=== PATIENT | female | born 2000 | race American Indian/Alaskan Native ===

== ENCOUNTER 2018-07-12 00:55 | Emergency (ER) | payer OTHER ==
[2018-07-12 01:19] VITALS: BP 119/65
[2018-07-12] MEDS ORDERED: IBUPROFEN PO ONE (03:19)
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
== END 2018-07-12 03:50 | disposition home or self-care (01) ==
LOC: ED 00:55
DX: T25.121A Burn of first degree of right foot, initial encounter (principal); F17.200 Nicotine dependence, unspecified, uncomplicated; X10.1XXA Contact with hot food, initial encounter; Y93.89 Activity, other specified; Y92.89 Other specified places as the place of occurrence of the external cause; Y99.8 Other external cause status

== ENCOUNTER 2020-01-04 05:28 | Outpatient (CLI) | payer MEDICAID, OTHER ==
[2020-01-04 06:09] VITALS: BP 121/81
[2020-01-04] MEDS ORDERED: LACTATED RINGERS 1,000 ML IV ONE (06:39)
[2020-01-04] MEDS ORDERED: HYDROcodone/ACETAMINOPHEN 5-325 MG TAB PO ONE (06:42)
== END 2020-01-04 11:21 | disposition home or self-care (01) ==
LOC: TRG 05:28 → APU 05:29 → TRG 11:21
PROVIDERS: ATTEND Obstetrics & Gynecology
DX: O62.9 Abnormality of forces of labor, unspecified (principal); Z3A.37 37 weeks gestation of pregnancy; Z87.891 Personal history of nicotine dependence
CPT/HCPCS: 59025; 96360; J7120